=== PATIENT | female | born 2000 | race Caucasian/White ===

== ENCOUNTER 2024-12-30 05:01 | Emergency (ER) | payer OTHER ==
[~2024-12-30] VITALS: Ht 167.6 cm; Wt 64.2 kg
--- NOTE | 2024-12-30 05:58 | DVH ---
CHEST RADIOGRAPH Indication: sob cough Technique: Single frontal view of the chest was obtained Comparison: None IMPRESSION: Heart appears normal in size. The lungs appear clear without focal airspace opacity, effusion, or pneumothorax
[2024-12-30] MEDS ORDERED: PRED20TA2 PO (06:10)
[2024-12-30] MEDS ORDERED: ALBU108A5 IN (06:10)
--- NOTE | 2024-12-30 06:11 | ED.PDOC ---
SOB-HPI HPI Comments 24 y/o F presents with c/c of cough, sore throat and wheezing for the past 2 days. Patient reports onset of symptoms after forgetting her asthma inhaler medication in [place] following recent trip. Denies any shortness of breath or further acute symptoms. HPI: Poor Historian. Past Medical History: Asthma Past Surgical History: Denies any REVIEW OF SYSTEMS: CONSTITUTIONAL: Denies acute: fever, diaphoresis, chills, HEAD: Denies acute: headache, photophobia Eyes: Denies acute: Double vision, vision loss, eye pain, eye discharge. EARS: Denies acute: tinnitus, hearing loss, ear discharge, ear pain, THROAT: Denies acute: sore throat, swelling, difficulty swallowing , pain with swallow ing, change in voice. NECK: Denies acute: neck pain, neck swelling, stiff neck. HEART: Denies acute : chest pain, palpitations, LUNGS: Denies acute: hemoptysis ABDOMEN: Denies acute: abdominal pain, Nausea, Vomiting, diarrhea, melena , hematemesis, hematochezia SKIN: Denies acute: rash, redness, lesions, itchiness. EXTREMITIES: Denies acute: calf pain, numbness, tingling, weakness, denies pain in extremity. Denies acute: Low back pain. Neuro: Denies acute: focal neurological deficit, motor or sensory focal neurological deficit, tremors, seizure like activity, confusion, dizziness, change in mental status, loss of bowel or bladder function, cauda equina like symptoms. : Denies acute: dysuria, hematuria, flank pain, increase in urinary frequency. PSYCH: Denies acute: hallucination, suicidal ideation, homicidal ideation. FEMALE: Denies acute: abnormal vaginal bleeding, foul odor, unusual discharge. PHYSICAL EXAM: General: ----mild----acute distress, awake and alert. Head: normocephalic, atraumatic. No raccoon's eyes, no neal sign. Neck: supple, trachea is midline, no swelling. Throat: Normal phonation. Eyes:, no erythema, no purulent discharge, no proptosis, no icterus. Heart: regular rate, regular rhythm, no significant murmur appreciated. Lungs: no apparent respiratory distress, Able to speak in full sentences. Bilateral wheezing, no rhonchi, no crackles. No stridors Abdomen: non tender to palpation, non distended, soft, no guarding, no rebound, + bowel sounds. Neuro: Awake, Alert, oriented to name, self, situation, follows commands GCS=15. Speech is normal. Skin: no petechia, no purpura, no cyanosis, non-pale, not jaundice. Lower extremities: --no - Pitting edema no deformity, no focal swelling, no calf TTP. Makes eye contact. moves all four extremities. Face: no apparent facial droop. Ambulating in the ED independently. ED COURSE: DISCLAIMER: This medical document was created using an electronic medical record system with voice recognition software and computerized dictation system. Although this document has been carefully reviewed, there might still be some phonetic and typographical errors. Occasional wrong-word or "sound-alike" substitutions may have occurred due to the inherent limitations of voice recognition software. These areas are purely typographical due to imperfections of the software programs and do not reflect any compromise in the patient's medical care. Please read the chart carefully and recognize, using context, where these substitutions have occurred. Chief Complaint: Asthma Time Seen by MD: 06:02 Reviewed notes: Allergies Information Source: Patient Mode of Arrival: Ambulatory Was a procedure done? Was a procedure done?: No Differential Dx Differential Diagnosis: Other (DDx include ACS, unstable angina, anxiety, PE, pneumothroax, neoplasm, cardiac ischemia, COPD, asthma, CHF, pleural effusion, tobacco abuse, pneumonia, hypoxia, hypercapnia, anemia., infection/sepsis., pulmonary edema. Asthma, Cardiac tamponade, infection.) X-Ray, Labs, Meds, VS Vital Signs Date Time Temp Pulse Resp B/P (MAP) Pulse Ox O2 Delivery O2 Flow Rate FiO2 12/30/24 06:23 24 100 Room Air* 0 21 12/30/24 06:22 110 20 100 Room Air 12/30/24 06:22 98.3 110 20 113/75 (88) 100 98.3 12/30/24 05:02 97.8 68 20 103/72 96 97.8 Current Medications Medications (Trade) Dose Ordered Sig/Rosa Route Start Time Stop Time Status Last Admin Albuterol (Ventolin Medneb) 2.5 mg ONCE ONCE NEB 12/30/24 05:15 12/30/24 05:16 DC 12/30/24 06:23 Ipratropium [place] (Atrovent Medneb) 0.5 mg ONCE ONCE NEB 12/30/24 05:15 12/30/24 05:16 DC 12/30/24 06:23 Methylprednisolone Sodium Succinate (Solu Medrol) 125 mg ONCE ONCE IM 12/30/24 05:15 12/30/24 05:16 DC 12/30/24 06:22 [place] [address] Ph: [phone] DIAGNOSTIC IMAGING Diagnostic Imaging Report : [id number] Signed PATIENT: KAREN MERCER ACCT: [id number] UNIT: [id number] : 2000 LOC: ER ROOM / BED: / AGE / SEX: 24 / F ADM STATUS: REG ER SERVICE [id number] ORDERING PHYSICIAN: DONNY JUNIOR DO PROCEDURE(s): CXRP - CHEST PORTABLE REASON: sob cough ORDER NUMBER(s): [id number], ACCESSION NUMBER(s): [id number] CHEST RADIOGRAPH Indication: sob cough Technique: Single frontal view of the chest was obtained Comparison: None IMPRESSION: Heart appears normal in size. The lungs appear clear without focal airspace opacity, effusion, or pneumothorax ATED BY: KIKO MILIAN MD DICTATED DATE/TIME: 12/30/24556 SIGNED BY: KIKO MILIAN MD SIGNED DATE/TIME: 12/30/24556 CC: Time of 1ST Reevaluation: 06:02 Reevaluation 1ST: Unchanged Patient Education/Counseling: Diagnosis, Treatment Family Education/Counseling: Diagnosis, Treatment Comments MDM: patient presented with the above HPI.--asthma exacerbation/medication refill----workup was initiated. patient was found with the above mentioned diagnosis. the following medications were ordered: please refer to order lists of meds and tests obtained by myself Dr. Junior. Patient ED course and VS have been stabilized. Patient has been reassessed in the ED and remained in a stable condition. Pertinent incidental findings were discussed with the patient and/or family. Patient/family voices understanding and is agreeable with plan. Patient has been observed in the ED adequate length of time to insure improvement/stability. Escalation of care considered: Consideration of escalation to observation or admission Patient was given steroids and a DuoNeb treatment here in the ED. Patient was DISCHARGED home in a stable condition. All the reports of any imaging studies that were ordered by myself were reviewed by myself. SEPSIS Sepsis Screen Date sepsis recognized/suspect: Dec 30, 2024 Time Sepsis recognized/suspect: 050 Recent Procedure: No On Antibiotic Therapy: No Respiratory Rate >20: No Heart Rate >90: No Temp<36 C (96.8 F) or >38.3 C: No SBP <90 or MAP <65 mmHG: No New Acute Mental Status Change: No Is the patient on CPAP, BIPAP,: No Physician Orders Chest Portable (12/30/24 05:08) Vital Signs Date Time Temp Pulse Resp B/P (MAP) Pulse Ox O2 Delivery O2 Flow Rate FiO2 12/30/24 06:23 24 100 Room Air* 0 21 12/30/24 06:22 110 20 100 Room Air 12/30/24 06:22 98.3 110 20 113/75 (88) 100 98.3 12/30/24 05:02 97.8 68 20 103/72 96 97.8 Departure 1 Departure Time of Disposition: 06:09 Impression: Primary Impression: Acute asthma Disposition: 01 HOME / SELF CARE / HOMELESS Condition: Stable Additional Instructions: Additional instructions: Please read all instructions provided in this packet carefully. You MUST follow-up with your primary care/family doctor in 1 to 2 days. If you are unable to see your primary care/family doctor, please return to our emergency room for re-assessment and re-evaluation in 1 to 2 days. Return to the emergency room here in our facility or to the nearest ER [facility] if your symptoms change or worsen. CONSULTATIONS: you MUST Follow-up for consultation as soon as possible with: --pulmonology in 1-2 days. Please call for appointment. You MUST call the consultants office yourself to make an appointment. You may need to arrange that through your insurance and/or your primary/family doctor. If you are unable to see the computer systems consultant in 1 to 2 days, you must return to our emergency room (or any other ER of your choice) for re-assessment and re- evaluation. Adequate fluid hydration. Although you have been discharged from the Emergency Department, this does not mean that you have a "clean bill of health". No definitive diagnosis for your symptoms has been made today. It is possible that you are in the process of developing a serious illness. This is why you must return to the ED without fail if any new or worsening symptoms develop. Below is a copy of your radiological report for follow up: e-Prescriptions Prednisone (Prednisone) 20 Mg Tab 40 MG PO DAILY for 5 Days, #10 TAB Prov: DONNY JUNIOR DO 12/30/24 Albuterol Sulfate (Albuterol Sulfate Hfa) 108 Mcg/Act Aer 108 MCG IN Q4HPRN PRN for 7 Days, #1 AER Prov: DONNY JUNIOR DO 12/30/24 Discharged With: Self Critical Care Note Critical Care Time?: No I personally scribed for DONNY JUNIOR DO ([email or web address]) on 12/30/24 at 06:12. Electronically submitted by Dariel Grayson ([email or web address]). DONNY JUNIOR DO Dec 30, 2024 06:10
[2024-12-30] MEDS ORDERED: methylPREDNISolone SOD SUCC 125 MG/2 ML VL ONE (06:19)
[2024-12-30 06:22] VITALS: BP 113/75; PULSE 110; TEMP 98.3
[2024-12-30] MEDS: methylPREDNISolone SOD SUCC 125 MG/2 ML VL IM ONE (06:22)
[2024-12-30 06:23] VITALS: RESP 24; O2SAT 100
[2024-12-30] MEDS: IPRATROPIUM BROM 0.5 MG/2.5ML INH SOL NEB ONE (06:23)
[2024-12-30] MEDS: ALBUTEROL SULF 2.5 MG/0.5ML(0.5%) NEB SOLN NEB ONE (06:23)
== END 2024-12-30 06:37 | disposition home or self-care (01) ==
LOC: ER 05:01
DX: J45.909 Unspecified asthma, uncomplicated (principal); Z79.899 Other long term (current) drug therapy
CPT/HCPCS: 71045; 94640; 96372; 99283; J2919